=== PATIENT | male | born 1970 | race Caucasian/White ===

== ENCOUNTER 2024-02-19 15:37 | Outpatient (REF) | payer MEDICAID, SELFPAY ==
[2024-02-19 16:34] LABS: Abs Immature Grans 0.12 10^3/uL (0.0-0.06); Absolute Eosinophil Count 0.34 10^3/uL (0.0-0.7); Absolute Lymphocyte Count 3.34 10^3/uL (1.2-3.4); Absolute Monocyte Count 0.99 10^3/uL (0.1-0.8); Basophils % 1.3 %; Eosinophils % 2.5 %; HCT 39.7 % (40.0-50.0); HGB 12.9 g/dL (13.5-17.5); Immature Grans % 0.9 %; Lymphocytes % 24.6 %; MCH 29.7 pg (27.0-33.0); MCHC 32.5 % (32.0-36.0); MCV 92 fL (80-95); MPV 11.8 fL (8.0-11.0); Monocytes % 7.3 %; Neutrophils % 63.4 %; Platelet Count 362 10^3/uL (130-400); RBC 4.34 10^6/uL (4.36-5.78); RDW 14.1 % (11.8-14.1); RDW-SD 47.7 fL; WBC 13.58 10^3/uL (4.4-10.8)
[2024-02-19 16:37] LABS: Absolute Basophil Count 0.18 10^3/uL (0.0-0.2); Absolute Neutrophil Count 8.61 10^3/uL (1.2-6.7)
[2024-02-21 08:46] LABS: IgE 47 IU/mL (<158)
== END 2024-02-19 15:38 | disposition home or self-care (01) ==
LOC: LBN 15:37
PROVIDERS: Visit Provider Physician Assistant Surgical
DX: J44.89 Other specified chronic obstructive pulmonary disease (principal)
CPT/HCPCS: 82785; 85025

== ENCOUNTER 2024-04-09 05:00 | Outpatient (CLI) | payer MEDICAID, SELFPAY ==
[2024-04-09] MEDS: Inhaler, Assist Device 1 EACH MC (17:14)
[2024-04-09] MEDS: Levalbuterol HFA 15 GM INH 4 PUFF IH (17:14)
--- NOTE | 2024-04-14 10:55 | W.PFT ---
Date of service: 04/09/24 Time of Service: 15:00 Pulmonary Function Test Result Requesting Provider Priyanka Davidson Indications: COPD Impression Spirometry shows decreased FEV1/FVC of 43%. CV year decrease in FEV1 at 31% with significant reversibility after bronchodilator going to 47%. Lung volumes showed a moderate decrease in SVC and vital capacity. In the moderate decrease in diffusion of 58%. Flow volume curve shows obstruction. Impression Severe obstructive and moderate restrictive ventilatory defect with a moderate decrease in diffusion. Clinical Correlation therefore is recommended.
== END 2024-04-09 05:01 | disposition home or self-care (01) ==
LOC: RT 05:01
PROVIDERS: Visit Provider Internal Medicine Critical Care Medicine
DX: J44.9 Chronic obstructive pulmonary disease, unspecified (principal)
CPT/HCPCS: 00123; 94060; 94726; 94729